=== PATIENT | female | born 1980 | race Native Hawaiian/Other Pacific Islander ===

== ENCOUNTER 2018-08-18 11:17 | Emergency (ER) | payer OTHER, MEDICAID, SELFPAY ==
[2018-08-18 11:31] VITALS: BP 128/85; PULSE 65; RESP 14; TEMP 37.2; O2SAT 95; BMI 46.9
[2018-08-18 12:52] VITALS: BP 122/81; PULSE 65; RESP 14; O2SAT 98
--- NOTE | 2018-08-18 13:04 | ED_ITS ---
HPI - Female Genitourinary <Heydi Ruiz PA-C - Last Filed: 08/18/18 21:27> General Chief complaint: Vaginal Bleeding Stated complaint: a lot of stomach pain when eats ovarian cysts Time Seen by Provider: 08/18/18 13:03 Source: patient Mode of arrival: ambulatory Limitations: no limitations History of Present Illness HPI Narrative: this 37-year-old female comes to ED due to worsening pelvic pain and persistent vaginal bleeding. She states that this has been going on for over a month. She has seen her PCP and is on norethindrone but states this is not working. She has persistent bleeding that ranges from normal flow to just light spotting. She states that pain is across her pelvis area and can feel a little bit in the lower abdomen, more on the left side. She states that pain is worse with stretching out her legs and better with curling up. She states at times she has nausea due to the pain and can't eat. She has not had any vomiting. She states that she also feels more tired and weak in general and has been sleeping more. She states that she has a history of endometriosis , fibroids, PCOS, and her PCP whom she saw on Tuesday referred her for an ultrasound, but told her to come to ED if worse, and she does not feel like she can wait 2 weeks for referral. She states that she also has ongoing chronic back pain and has chronic sciatica and spasm, but that is worse on the right. She states that she has been having more difficulty lifting her leg due to pain and spasm. She does not have any new paresthesia. She denies any new bowel or bladder dysfunction. She does see a retail pos specialist every few months for injections. She states that her worsening back pain started at least a couple of weeks before the pelvic area pain but she has not seen her specialist. She denies any new fever. She has had some brownish vaginal discharge at times, denies STD concerns. Related Data Home Medications Medication Instructions Recorded Confirmed bupropion HCl 1 tab PO QAM 08/18/18 08/18/18 ergocalciferol (vitamin D2) 1 cap PO QWEEK 08/18/18 08/18/18 hydroxyzine HCl 1 tab PO QID PRN 08/18/18 08/18/18 ibuprofen 1 tab PO PRN PRN MDD 3 tabs 08/18/18 08/18/18 loratadine 10 mg PO DAILY 08/18/18 08/18/18 metformin 1 tab PO BID 08/18/18 08/18/18 norethindrone acetate 5 mg PO BID 08/18/18 08/18/18 pregabalin [Lyrica] 1 cap PO TID 08/18/18 08/18/18 propranolol 1 tab PO BID 08/18/18 08/18/18 spironolactone 1 tab PO DAILY 08/18/18 08/18/18 Previous Rx's Medication Instructions Recorded cyclobenzaprine 10 mg PO Q8H PRN #14 tab 08/18/18 meloxicam 15 mg PO DAILY #14 tab 08/18/18 Allergies Allergy/AdvReac Type Severity Reaction Status Date / Time ceftriaxone [From Rocephin] Allergy Severe Anaphylaxis Verified 08/18/18 11:35 hydroxyzine AdvReac Intermediate Hives Verified 08/18/18 11:35 Review of Systems <Heydi Ruiz PA-C - Last Filed: 08/18/18 21:27> Review of Systems All systems reviewed & are unremarkable except as noted in HPI and below PFSH <Heydi Ruiz PA-C - Last Filed: 08/18/18 21:27> Comment: occ ETOH Exam <Heydi Ruiz PA-C - Last Filed: 08/18/18 21:27> Narrative Exam Narrative: GENERAL APPEARANCE: Patient sitting comfortably, in no distress. HEENT: PERRL, EOMI, no scleral icterus NECK: Supple LUNGS: Clear to auscultation bilaterally. HEART: Rate and rhythm regular, normal S1 and S2, no S3 or S4. ABDOMEN: Soft, obese, nondistended, bowel sounds present x 4 quadrants, no masses palpable, no hepatosplenomegaly. Generalized suprapubic tenderness without guarding or rebound, less tenderness over the inferior borders of the lower quadrants. EXTREMITIES: No edema, no cyanosis DERMATOLOGIC: No jaundice or exanthem MUSCULOSKELETAL: Moderate tenderness around the right SI joint, no spinal point tenderness. Lower extremity strength 5/5 all wilson bilaterally with negative straight leg raise on the right. Tender with position changes NEUROLOGIC: Alert and oriented with normal speech and coordination, lower extremity sensation grossly intact NEUROLOGIC: Alert and oriented with normal speech and coordination Initial Vital Signs Initial Vital Signs: Vital Signs Temperature 99.0 F 08/18/18 11:31 Pulse Rate 65 08/18/18 11:31 Respiratory Rate 14 08/18/18 11:31 Blood Pressure 128/85 08/18/18 11:31 Pulse Oximetry 95 08/18/18 11:31 <Conchita Fair DO - Last Filed: 08/20/18 08:06> Initial Vital Signs Initial Vital Signs: Vital Signs Temperature 99.0 F 08/18/18 11:31 Pulse Rate 65 08/18/18 11:31 Respiratory Rate 14 08/18/18 11:31 Blood Pressure 128/85 08/18/18 11:31 Pulse Oximetry 95 08/18/18 11:31 Course <Heydi Ruiz PA-C - Last Filed: 08/18/18 21:27> Additional Information: Patient reported improvement in her back pain, no change in her pelvic pain while here. Ultrasound findings review. She is not acutely worse today. Advised follow-up with PCP and gynecology referral since she has known endometriosis. Also advised to see her back specialist for follow -up next week instead of waiting until her regular appointment since her pain is worsening. She is agreeable, and also agreeable with plan to return if any acutely worsening symptoms in the interim Orders Ordered: Discontinued Medications Cyclobenzaprine HCl (Flexeril) 10 mg PO NOW ONE Stop: 08/18/18 13:27 Last Admin: 08/18/18 13:31 Dose: 10 mg Ibuprofen (Advil) 800 mg PO NOW ONE Stop: 08/18/18 13:27 Last Admin: 08/18/18 13:30 Dose: 800 mg Vital Signs - 8 hr 08/18/18 15:31 Temperature 97.0 F L Pulse Rate 69 Respiratory Rate 16 Blood Pressure [Left Arm] 129/70 Pulse Oximetry 99 <Conchita Fair DO - Last Filed: 08/20/18 08:06> Orders Ordered: Discontinued Medications Cyclobenzaprine HCl (Flexeril) 10 mg PO NOW ONE Stop: 08/18/18 13:27 Last Admin: 08/18/18 13:31 Dose: 10 mg Ibuprofen (Advil) 800 mg PO NOW ONE Stop: 08/18/18 13:27 Last Admin: 08/18/18 13:30 Dose: 800 mg Vital Signs - 8 hr 08/18/18 15:31 Temperature 97.0 F L Pulse Rate 69 Respiratory Rate 16 Blood Pressure [Left Arm] 129/70 Pulse Oximetry 99 MDM - Female Genitourinary <Heydi Ruiz PA-C - Last Filed: 08/18/18 21:27> Lab Data Attestation: I reviewed the patient's lab results. Result diagrams: 08/18/18 13:45 Lab Results 08/18/18 Range/Units 13:45 Hgb 14.6 (12.0-16.0) g/dL Hct 42.9 (36-46) % Point of Care Testing Test Results Negative Urine Dip Bedside Urine Glucose Negative Bedside Urine Bilirubin + 1 Bedside Urine Ketone - Negative Urine Specific [place] 1.025 Bedside Urine Occult Blood ++ Bedside Urine pH 6.0 Bedside Urine Protein +/- 15 Bedside Urine Urobilinogen - Negative Bedside Urine Nitrite - Negative Bedside Urine Leukocytes - Negative Esterase Imaging Data pelvis: Radiologist's impression: [address] [id number] Ultrasound Report Signed Patient: Steph KrausR#: [id number] : 1980Acct:[id number] Age/Sex: 37 / FDate of Service: 08/18/18 Loc: ED Accession Number: [id number] Procedure: US pelvic complete Ordering Provider: Heydi Ruiz P.A-C PROCEDURE: US PELVIC COMPLETE INDICATIONS: PAIN, DUB TECHNIQUE: Real-time scanning was performed of the pelvic organs, with image documentation. Additional endovaginal scanning was necessary due to incomplete visualization of the adnexal and endometrial structures by transabdominal scanning. COMPARISON: None. FINDINGS: Transabdominal scanning: Limited scanning through the kidneys shows no hydronephrosis. No pathologic free abdominal or pelvic fluid. Endovaginal scanning: Uterus: Uterus is mildly enlarged in size at 9.0 x 6.1 x 7.6 cm. The endometrium measures 6 mm in combined thickness. Small heterogeneous ovoid lesion is identified within the myometrium along the anterior wall of the uterus towards the right of midline, measuring up to 2.7 cm in diameter. No significant fluid is contained within the endometrium. Ovaries: The right ovary is enlarged and measures 4.2 x 2.9 x 2.3 cm. No definite solid or cystic abnormality is appreciated. Blood flow is demonstrated to the right ovary, which has a normal Doppler waveform. The left ovary is borderline enlarged and measures 3.6 x 1.8 x 2.5 cm and is normal in size. Similar sized subcentimeter peripheral follicles are identified on the left ovary. Blood flow is demonstrated to the left ovary, which demonstrates a normal Doppler waveform. IMPRESSION: 1. Small intramural uterine fibroid. The uterus is otherwise unremarkable. 2. Mildly enlarged bilateral ovaries without a cystic or solid abnormality appreciated could potentially be on the basis of polycystic ovarian syndrome, in the correct clinical setting. Dictated by: Zion Moralez M.D. on 08/18/2018 at 13:35 Approved by: Zion Moralez M.D. on 08/18/2018 at 13:38 <Conchita Fair DO - Last Filed: 08/20/18 08:06> Lab Data Lab Results 08/18/18 Range/Units 13:45 Hgb 14.6 (12.0-16.0) g/dL Hct 42.9 (36-46) % Point of Care Testing Test Results Negative Urine Dip Bedside Urine Glucose Negative Bedside Urine Bilirubin + 1 Bedside Urine Ketone - Negative Urine Specific [place] 1.025 Bedside Urine Occult Blood ++ Bedside Urine pH 6.0 Bedside Urine Protein +/- 15 Bedside Urine Urobilinogen - Negative Bedside Urine Nitrite - Negative Bedside Urine Leukocytes - Negative Esterase Discharge Plan Departure Patient Disposition: Home Clinical Impression: Pelvic pain, Chronic back pain, IMB (intermenstrual bleeding) Discharge Date/Time: 08/18/18 15:48 Interventions: ED Discharge Assessment Last Done: 08/18/18 15:48 Instructions: DI for Pelvic Pain Activity Restrictions/Additional Instructions: You have large ovaries and a fibroid on your ultrasound today, but no acute problem was seen. Your pain could be due to endometriosis, and this also needs to be sorted out from your back problems even though your back pain had worsened prior to onset of your pelvic pain and bleeding. Please stop ibuprofen and start the once a day anti-inflammatory meloxicam that I prescribed for you. I have also given you a prescription for a muscle relaxant since that seems to help your back pain. You should call your PCP office and let them know that you were in the emergency room today so that you can be seen for follow-up early next week and be referred for a gynecology evaluation. You should also call your retail pos specialist since your back pain has been gradually getting worse and arrange for follow-up there preferably next week. You should return here if you have any acutely worsening symptoms over the weekend, i.e. numbness in your groin or inability to urinate, or acute weakness in your legs, as well as worsening abdominal pain, vomiting, or fever. Prescriptions: New cyclobenzaprine 10 mg tablet 10 mg PO Q8H PRN (Reason: muscle spasm/pain) Qty: 14 RF: 0 meloxicam 15 mg tablet 15 mg PO DAILY Qty: 14 RF: 0 No Action ibuprofen 600 mg tablet 1 tab PO PRN MDD 3 tabs PRN (Reason: Migraine Headache) RF: 0 metformin 500 mg tablet 1 tab PO BID RF: 0 spironolactone 100 mg tablet 1 tab PO DAILY RF: 0 propranolol 40 mg tablet 1 tab PO BID RF: 0 hydroxyzine HCl 25 mg tablet 1 tab PO QID PRN (Reason: Anxiety) RF: 0 norethindrone acetate 5 mg Tablet 5 mg PO BID RF: 0 ergocalciferol (vitamin D2) 50,000 unit capsule 1 cap PO QWEEK RF: 0 loratadine 10 mg Tablet 10 mg PO DAILY RF: 0 pregabalin [Lyrica] 75 mg capsule 1 cap PO TID RF: 0 bupropion HCl 150 mg tablet extended release 24 hr 1 tab PO QAM RF: 0 Referrals: Lea Murguia [Non-Staff] - <Conchita Fair DO - Last Filed: 08/20/18 08:06> Cosign ED Attending Cosignature Attestation: I was immediately available in the department for consultation. This documentation has been reviewed and I agree with assessment and plan. Supervised by Conchita Fair DO
--- NOTE | 2018-08-18 13:26 | DI.US.S_ITS ---
PROCEDURE: US PELVIC COMPLETE INDICATIONS: PAIN, DUB TECHNIQUE: Real-time scanning was performed of the pelvic organs, with image documentation. Additional endovaginal scanning was necessary due to incomplete visualization of the adnexal and endometrial structures by transabdominal scanning. COMPARISON: None. FINDINGS: Transabdominal scanning: Limited scanning through the kidneys shows no hydronephrosis. No pathologic free abdominal or pelvic fluid. Endovaginal scanning: Uterus: Uterus is mildly enlarged in size at 9.0 x 6.1 x 7.6 cm. The endometrium measures 6 mm in combined thickness. Small heterogeneous ovoid lesion is identified within the myometrium along the anterior wall of the uterus towards the right of midline, measuring up to 2.7 cm in diameter. No significant fluid is contained within the endometrium. Ovaries: The right ovary is enlarged and measures 4.2 x 2.9 x 2.3 cm. No definite solid or cystic abnormality is appreciated. Blood flow is demonstrated to the right ovary, which has a normal Doppler waveform. The left ovary is borderline enlarged and measures 3.6 x 1.8 x 2.5 cm and is normal in size. Similar sized subcentimeter peripheral follicles are identified on the left ovary. Blood flow is demonstrated to the left ovary, which demonstrates a normal Doppler waveform. IMPRESSION: 1. Small intramural uterine fibroid. The uterus is otherwise unremarkable. 2. Mildly enlarged bilateral ovaries without a cystic or solid abnormality appreciated could potentially be on the basis of polycystic ovarian syndrome, in the correct clinical setting. Dictated by: Zion Moralez M.D. on 08/18/2018 at 13:35 Approved by: Zion Moralez M.D. on 08/18/2018 at 13:38
[2018-08-18] MEDS: IBUPROFEN 400 MG TABLET 800 MG PO (13:30)
[2018-08-18] MEDS: CYCLOBENZAPRINE 10 MG TABLET PO (13:31)
[2018-08-18 13:51] LABS: Hematocrit 42.9 % (36-46); Hemoglobin 14.6 g/dL (12.0-16.0)
[2018-08-18 15:31] VITALS: BP 129/70; PULSE 69; RESP 16; TEMP 36.1; O2SAT 99
--- NOTE | 2018-08-21 13:46 | PC.NURSE ---
Called pt in follow up. Left message on cell to call back if any concerns or questions.
== END 2018-08-18 15:48 | disposition home or self-care (01) ==
PROVIDERS: Emergency Provider Internal Medicine
DX: R10.2 Pelvic and perineal pain (principal); M54.9 Dorsalgia, unspecified; G89.29 Other chronic pain; N92.3 Ovulation bleeding
CPT/HCPCS: 36415; 76830; 76856; 81003; 81025; 85014; 85018; 99282; 99284